=== PATIENT | female | born 1985 | race African-American/Black ===

== ENCOUNTER 2019-04-25 15:05 | Emergency (ER) | payer OTHER ==
[~2019-04-25] VITALS: Ht 154.9 cm; Wt 121.6 kg
[2019-04-25 16:25] VITALS: BP 128/84
--- NOTE | 2019-04-26 09:27 | EKG ---
[address] [address] ELECTROCARDIOGRAM REPORT Name: ELICIA NUNEZ Room #: DEP [id number] ������������������ Admission: 04/25/19 ������������������ Attend Phys: Discharge: 04/25/19 ������������������ Date of : 89 Report #: [id number] ����������������������������������������������������������������� [id number] THIS REPORT FOR: //name// [facility] ED Test Date: 2019-04-25 Test Time: 16:19:01 Pat Name: ELICIA NUNEZ Department: Room: Gender: F [employer]: kf : 1985 Requested By: Lenny Decker Order Number: [id number] MD: Torsten Mcintyre Measurements Intervals Qulin Rate: 99 P: 63 MA: 139 QRS: 4 QRSD: 91 T: 20 QT: 363 QTc: 466 Interpretive Statements Sinus rhythm Normal tracing No previous ECG available for comparison Electronically Signed On 04-26-2019 9:27:24 CDT by Torsten Mcintyre [email or web address] ��������������������������������������������� <ELECTRONICALLY SIGNED> ���������������������������������������� By: Torsten Mcintyre MD, [facility] ��������������������������������������������� 04/26/19 0927 1619 1619 Torsten Mcintyre MD, FAC /EPI
== END 2019-04-25 16:30 | disposition home or self-care (01) ==
LOC: ER 15:05
DX: J18.9 Pneumonia, unspecified organism (principal); K21.9 Gastro-esophageal reflux disease without esophagitis

== ENCOUNTER 2021-11-18 21:27 | Emergency (ER) | payer OTHER ==
[~2021-11-18] VITALS: Ht 154.9 cm; Wt 120.2 kg
[~2021-11-18 21:27] MED LIST: ACETAMINOPHEN-120 ML PO; AMOXICILLI250 MG/51 PO; AMOXICILLIN 50500 MG PO; ANUSOL-HC30 GM RC; APAP/CODEINE ELI5 M1 OR; APAP500 PO; CAVAN-FOLATE D1 EACH PO; CITRUCEL CLEAR539 GM PO; COLACE 100 MG100 MG PO; DIFLUCAN150 MG PO; DOXYCYCLINE 10100 MG PO; IBUPROFEN 800800 M1 PO; IRON325 PO; LANOLIN56 GM; MEDROL DOSPAK21 TA1; MOM; NAPROSYN500 MG PO; NOHOMEMEDICATIONS; NORCO 10-325 T1 EACH PO; NORCO 5-325 TA1 EACH PO; PENICILLIN V P500 MG; PROMETH-CODEIN 65 ML PO; TUSSIONEX PENN473 ML PO; VENTOLIN HFA 1818 GM INH; ZPAK PO
[2021-11-18 21:54] VITALS: BP 131/83
== END 2021-11-18 22:35 | disposition home or self-care (01) ==
LOC: ER 21:27
DX: U07.1 COVID-19 (principal); R06.02 Shortness of breath